=== PATIENT | male | born 1960 | race Caucasian/White ===

== ENCOUNTER 2022-09-09 16:13 | Emergency (ER) | payer OTHER, SELFPAY ==
[2022-09-09] VITALS (7 sets, daily range): BP systolic 127–146; BP diastolic 80–88; PULSE 47–53; RESP 18; TEMP 36.4; O2SAT 98–100; BMI 22.8
--- NOTE | 2022-09-09 16:42 | CRLHL7_ITS ---
For Patients: As a result of the Century Cures Act, medical imaging exams and procedure reports are released immediately into your electronic medical record. You may view this report before your referring provider. If you have questions, please contact your health care provider. INDICATION: Shortness of breath. TECHNIQUE: AP portable chest. FINDINGS: Skin folds projected over each upper hemithorax. No pneumothorax. Clear lungs. Normal heart size and pulmonary vascularity. Normal included skeleton. IMPRESSION: Negative portable chest x-ray. Dictated by Nimesh Quintero MD @ 09/09/2022 5:24:27 PM (Electronically Signed)
--- NOTE | 2022-09-09 16:52 | ED.GENADULT ---
HPI - General Adult General Time Seen by Provider: 16:52 Date Seen: 09/09/22 Chief complaint: Shortness of Breath/Dyspnea Stated complaint: Clinic sent over for blood work Time Seen by Provider: 09/09/22 16:17 Source: patient Mode of arrival: ambulatory Limitations: no limitations History of Present Illness HPI narrative: Patient is a 62-year-old white male, who was seen at the clinic, reported that he had shortness of breath over the last 10 days or so, and was sent to the ER for further evaluation. The patient denies any systemic signs of illness he has not had a cough, not had a fever, not had any leg swelling or edema. He has no history of coronary disease. He does not smoke. He does state that his symptoms are ?better? than they were 10 days ago, as he is able to walk farther without any shortness of breath. Occasionally he will get a burning sensation in his chest when he walks an incline at his house from the front of his house up to his house. In the past he would get shortness of breath even with 50 ft yd walking now it seems to be longer than that. He does not have symptoms at rest. He has had no leg swelling edema, no recent travel. 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 He has had no change in job he has had no exposures to chemicals that is been different than baseline. He has not had any history of diabetes, smoking, hypercholesterolemia, or family history of heart disease. Related Data Home Medications Medication Instructions Recorded Confirmed No Known Home Medications 09/09/22 09/09/22 Allergies Allergy/AdvReac Type Severity Reaction Status Date / Time No Known Drug Allergies Allergy Verified 09/09/22 16:21 Review of Systems Status of ROS: Reports: 10 or more systems reviewed and unremarkable except as noted in History and below PFSH PFS Social History Smoking Status: Never smoker How often do you have a drink containing alcohol: 2-3 times a week How many standard drinks containing alcohol do you have on a typical day: 3 or 4 How often do you have six or more drinks on one occasion: Never AUDIT-C Alcohol total score: 4 Non-prescribed substance use: denies use service: No Exam Narrative: Exam Narrative: Objective vital signs unremarkable in general the patient is no apparent distress, noncyanotic, normal breathing at this point his O2 sat is 90% on room air HEENT is unremarkable no scleral icterus no facial asymmetry Neck is supple Chest is clear no rales or wheezing Heart rhythm regular without murmur no S3 no S4 Abdomen benign soft nontender no hepatosplenomegaly Extremities are no edema neurologic nonfocal Good peripheral perfusion noted skin Skin is warm and dry Const: Vital Signs, click to edit/add: Vital Signs - 24 hr 09/09/22 16:21 09/09/22 17:17 09/09/22 17:30 Temperature 97.5 F L Pulse Rate 53 L 47 L Pulse Rate [Right Pulse Oximeter] 52 L Respiratory Rate 18 Blood Pressure Blood Pressure [Ri ght Upper Arm] 146/80 H Pulse Oximetry 98 98 99 09/09/22 17:32 09/09/22 17:45 09/09/22 18:00 Temperature Pulse Rate 48 L 48 L 53 L Pulse Rate [Right Pulse Oximeter] Respiratory Rate Blood Pressure 135/88 Blood Pressure [Ri ght Upper Arm] Pulse Oximetry 100 100 99 09/09/22 18:02 Temperature Pulse Rate 50 L Pulse Rate [Right Pulse Oximeter] Respiratory Rate Blood Pressure 127/81 Blood Pressure [Ri ght Upper Arm] Pulse Oximetry 99 Course Vital Signs Vital signs: Initial Vital Signs Temperature 97.5 F L 09/09/22 16:21 Temperature Source Temporal Artery Scan 09/09/22 16:21 Pulse Rate 52 L 09/09/22 16:21 Respiratory Rate 18 09/09/22 16:21 Blood Pressure 146/80 H 09/09/22 16:21 Blood Pressure Mean 102 09/09/22 16:21 Blood Pressure Position Sitting 09/09/22 16:21 Pulse Oximetry 98 09/09/22 16:21 Vital Signs Temperature 97.5 F L 09/09/22 16:21 Pulse Rate 52 L 09/09/22 16:21 Respiratory Rate 18 09/09/22 16:21 Blood Pressure 146/80 H 09/09/22 16:21 Pulse Oximetry 98 09/09/22 16:21 Temperature 97.5 F L 09/09/22 16:21 Pulse Rate 50 L 09/09/22 18:02 Respiratory Rate 18 09/09/22 16:21 Blood Pressure 127/81 09/09/22 18:02 Pulse Oximetry 99 09/09/22 18:02 Medical Decision Making MDM Narrative Medical decision making narrative: Patient is a 8 year white male with shortness of breath over about 10 day duration, he reports has improved. He does notice some chest symptoms when he does exert significantly, but that has gotten better he states. When he does get short of breath he does have an occasional cough, but not before he gets short of breath. The patient has had no fevers chills or rigors. Has had no leg swelling or edema, no history of congestive heart failure. He reports he has not had COVID. At this time the differential be broad including pneumonia, chest wall inflammation, coronary artery disease, pulmonary emboli, pneumothorax thorax. Patient will get the above-mentioned studies including chest x-ray lab studies troponin cardiac monitoring, will give him an EKG, will give him aspirin. Disposition pending findings above possible cardiology referral. Addendum: The patient by my review has a normal EKG with no acute ST T wave changes, his troponin is negative, his hemodynamics are stable. He has no chest pain at rest. He is not no shortness of breath at rest. His D-dimer is negative his laboratory studies look reassuring, his CRP is negative hemoglobin is 13.7, ER profile is negative, viral studies are all negative. His chest x-ray by my review looks negative, Radiology confirms. Does report that his symptoms are better. He certainly could have added a viral chest type cold, but I also think would be important to exclude a fix coronary issue and would recommend he take aspirin daily, would recommend he get a stress echocardiogram will try and set this up for tomorrow. I think he is safe to go home today. He should take aspirin 325 daily. Light activity no heavy lifting or exerting, off work for a couple of days written, and would recommend he recheck with regular doctor within 2 days, and will attempt to get a stress echo as well. Prior authorization has made these obtaining these test very difficult at times on short notice any may need to work through his primary care doctor to get this done. Lab Data Labs: Lab Results 09/09/22 09/09/22 09/09/22 Range/Units 16:50 16:50 16:50 WBC 4.59 (4.50-11.00) K/uL RBC 4.20 L (4.30-5.90) m/uL Hgb 13.7 (13.5-17.5) gm/dL Hct 39.9 (37.0-53.0) % MCV 95 (80-100) fL MCH 33 (26-34) pg MCHC 34 (32-36) gm/dL RDW Coeff of Tu 12.9 (11.5-15.5) % Plt Count 303 (140-440) K/uL Neut % (Auto) 57.5 (42.0-72.0) % Lymph % (Auto) 30.5 (20-44) % Burnet % (Auto) 10.2 (0.0-11.0) % Eos % (Auto) 0.9 (0.0-7.0) % Baso % (Auto) 0.7 (0.0-3.0) % Neut # (Auto) 2.64 (1.7-7.0) K/uL Lymph # (Auto) 1.40 (0.90-2.90) K/uL Burnet # (Auto) 0.50 (0.00-0.90) K/UL Eos # (Auto) 0.04 (0.00-0.50) K/uL Baso # (Auto) 0.03 (0.00-0.30) K/uL INR 0.86 L (0.91-1.10) APTT 29 (23-33) Seconds D-Dimer Quant (PE/DVT) 0.30 (0.00-0.50) ug/ml Sodium 139 (135-149) mmol/L Potassium 4.2 (3.6-5.1) mmol/L Chloride 109 (96-114) mmol/L Carbon Dioxide 26 (20-32) mmol/L BUN 22 (7-30) mg/dL Creatinine 1.0 (0.5-1.5) mg/dL Estimated Creat Clear 81.11 Estimated GFR 86 ml/min Glucose 93 (60-115) mg/dL Calcium 8.9 (8.4-10.6) mg/dL Total Bilirubin 0.5 (0.1-1.5) mg/dL Direct Bilirubin 0.2 (0.0-0.5) mg/dL AST 24 (12-35) U/L ALT 28 (4-50) U/L Alkaline Phosphatase 52 (40-150) U/L Troponin I < 0.01 L (0.01-0.04) ng/mL C-Reactive Protein < 0.5 L (0.5-1.0) mg/dL NT-Pro-B Natriuret Pep 77 pg/mL Total Protein 6.6 (6.0-8.3) g/dL Albumin 4.2 (3.3-5.0) g/dL SARS-CoV-2 (PCR) (Negative) Influenza Type A (PCR) (Negative) Influenza Type B (PCR) (Negative) RSV (PCR) (Negative) 09/09/22 Range/Units 16:50 WBC (4.50-11.00) K/uL RBC (4.30-5.90) m/uL Hgb (13.5-17.5) gm/dL Hct (37.0-53.0) % MCV (80-100) fL MCH (26-34) pg MCHC (32-36) gm/dL RDW Coeff of Tu (11.5-15.5) % Plt Count (140-440) K/uL Neut % (Auto) (42.0-72.0) % Lymph % (Auto) (20-44) % Burnet % (Auto) (0.0-11.0) % Eos % (Auto) (0.0-7.0) % Baso % (Auto) (0.0-3.0) % Neut # (Auto) (1.7-7.0) K/uL Lymph # (Auto) (0.90-2.90) K/uL Burnet # (Auto) (0.00-0.90) K/UL Eos # (Auto) (0.00-0.50) K/uL Baso # (Auto) (0.00-0.30) K/uL INR (0.91-1.10) APTT (23-33) Seconds D-Dimer Quant (PE/DVT) (0.00-0.50) ug/ml Sodium (135-149) mmol/L Potassium (3.6-5.1) mmol/L Chloride (96-114) mmol/L Carbon Dioxide (20-32) mmol/L BUN (7-30) mg/dL Creatinine (0.5-1.5) mg/dL Estimated Creat Clear Estimated GFR ml/min Glucose (60-115) mg/dL Calcium (8.4-10.6) mg/dL Total Bilirubin (0.1-1.5) mg/dL Direct Bilirubin (0.0-0.5) mg/dL AST (12-35) U/L ALT (4-50) U/L Alkaline Phosphatase (40-150) U/L Troponin I (0.01-0.04) ng/mL C-Reactive Protein (0.5-1.0) mg/dL NT-Pro-B Natriuret Pep pg/mL Total Protein (6.0-8.3) g/dL Albumin (3.3-5.0) g/dL SARS-CoV-2 (PCR) Negative SARS-CoV-2 (Negative) Influenza Type A (PCR) Negative PCR FLU A (Negative) Influenza Type B (PCR) Negative PCR FLU B (Negative) RSV (PCR) Negative PCR RSV (Negative) Discharge Plan Discharge Clinical Impression: Mild shortness of breath Patient Disposition: Home w/ Parent or Adult Condition: Stable Additional Instructions: Recommend very light activity, off work for couple of days, recheck with regular doctor in 2 days, will attempt to set up a stress echocardiogram for you to check your heart tomorrow. Aspirin recommended daily 325 mg. If chest pain or other concern that does not resolve prompt 911 called ambulance and return to the ED. Activity Level: Light activity Activity Detail: Off work x2 days Discharge Diet: Regular Prescriptions: No Action No Known Home Medications Follow Up/Referrals: Jory Chandra MD [Primary Care Provider] - Stand Alone Forms: [employer] Info Instructions
[2022-09-09] MEDS: 0.9 % SODIUM CHLORIDE 500 ML 500 ML IV (16:55)
[2022-09-09] MEDS: ASPIRIN 81 MG TAB.CHEW 324 MG PO (16:55)
[2022-09-09 17:01] LABS: Basophils Absolute Auto 0.03 K/uL (0.00-0.30); Basophils Percent Auto 0.7 % (0.0-3.0); Eosinophils Absolute Auto 0.04 K/uL (0.00-0.50); Eosinophils Percent Auto 0.9 % (0.0-7.0); Hematocrit 39.9 % (37.0-53.0); Hemoglobin* 13.7 gm/dL (13.5-17.5); Immature Granulocytes Abs Auto 0.01 K/uL (0.00-0.30); Immature Granulocytes Pct Auto 0.2 %; Lymphocytes Percent Auto 30.5 % (20-44); Mean Corpuscular HGB Conc 34 gm/dL (32-36); Mean Corpuscular Hemoglobin 33 pg (26-34); Mean Corpuscular Volume 95 fL (80-100); Monocytes Percent Auto 10.2 % (0.0-11.0); Neutrophils Absolute Auto 2.64 K/uL (1.7-7.0); Neutrophils Percent Auto 57.5 % (42.0-72.0); Platelet Count* 303 K/uL (140-440); RDW Coefficient of Variation % 12.9 % (11.5-15.5); White Blood Count* 4.59 K/uL (4.50-11.00)
[2022-09-09 17:03] LABS: Slide Review Reflex No
[2022-09-09 17:17] LABS: Albumin* 4.2 g/dL (3.3-5.0); Chloride* 109 mmol/L (96-114)
[2022-09-09 17:18] LABS: Potassium* 4.2 mmol/L (3.6-5.1); Sodium* 139 mmol/L (135-149)
[2022-09-09 17:20] LABS: Est. Creatinine Clearance* 81.11; Estimated Glomerular Filt Rate 86 ml/min
[2022-09-09 17:21] LABS: Alanine Aminotransferase* 28 U/L (4-50); Alkaline Phosphatase* 52 U/L (40-150); Aspartate Amino Transferase* 24 U/L (12-35); Bilirubin Direct* 0.2 mg/dL (0.0-0.5); Bilirubin Total* 0.5 mg/dL (0.1-1.5); Blood Urea Nitrogen* 22 mg/dL (7-30); Calcium* 8.9 mg/dL (8.4-10.6); Carbon Dioxide* 26 mmol/L (20-32); Glucose* 93 mg/dL (60-115); Total Protein* 6.6 g/dL (6.0-8.3)
[2022-09-09 17:26] LABS: C Reactive Protein* < 0.5 mg/dL (0.5-1.0)
[2022-09-09 17:30] LABS: INR 0.86 (0.91-1.10); NT Pro B Type NatriureticPept* 77 pg/mL; Prothrombin Time 12.3 Seconds
[2022-09-09 17:34] LABS: Troponin I* < 0.01 ng/mL (0.01-0.04)
[2022-09-09 17:38] LABS: PCR FLU A Negative PCR FLU A (Negative); PCR FLU B Negative PCR FLU B (Negative); PCR RSV Negative PCR RSV (Negative)
[2022-09-09 17:49] LABS: SARS PCR* Negative SARS-CoV-2 (Negative)
[2022-09-09 17:59] LABS: Partial Thromboplastin Time* 29 Seconds (23-33)
== END 2022-09-09 18:16 | disposition home or self-care (01) ==
PROVIDERS: Emergency Provider Family Medicine; PCP Family Medicine
DX: R06.02 Shortness of breath (principal)
CPT/HCPCS: 36415; 71045; 80048; 80076; 83880; 84484; 85025; 85379; 85610; 85730; 86140; 87502; 87634; 87635; 99284; 99285; A9270; J7120

== ENCOUNTER 2022-10-01 13:36 | Outpatient (CLI) | payer OTHER, SELFPAY ==
[2022-10-01 14:30] VITALS: BP 124/76; PULSE 79
--- NOTE | 2022-10-01 15:53 | P.STN_ITS ---
Stress Test Note Date Date of test: 10/01/22 Providers Referring provider: Vladimir Lee Primary care provider: Jory Chandra Stress test physician: Dimas Zeng Stress Test Note Stress test ordered: Stress Echo Indication for test: Shortness of breath Results discussion: Patient is a very nice 62-year-old gentleman who presents for the above test after discussion the risks benefits and side effects he would like to proceed pretest EKG shows normal sinus rhythm, no acute ST wave changes are noted, vent ricular rate is 54, blood pressure 147/80 standard Dyllan protocol is employed over 10 minutes, and she had a metabolic open 11.5 Mets which is thought to be excellent. His maximum heart was 146 which is 107% of the target. Test is terminated because of fulfillment of protocol, he did not have any chest pain, shortness of breath, or any anginal equivalent symptoms. There is no dysrhythmias and no ST wave changes indicative of ischemia. Impression: Negative electrographic portion of stress echo Follow up suggested: Await echo images these will be read by Cardiology, clinical correlation with these will be needed, patient left this testing facility in excellent condition at baseline.
--- NOTE | 2022-10-23 10:54 | ED.NURSE ---
Per Dr. Lee, Stress Echo results are normal. Contacted patient regarding results. Pt instructed to follow up with primary physician.
== END 2022-10-01 13:37 | disposition home or self-care (01) ==
PROVIDERS: PCP Family Medicine; Visit Provider Family Medicine
DX: R06.02 Shortness of breath (principal)
CPT/HCPCS: 93016; 93325; 93351